=== PATIENT | male | born 1995 | race African-American/Black ===

== ENCOUNTER 2016-02-16 17:57 | Emergency (ER) | payer OTHER ==
[~2016-02-16] VITALS: Ht 172.7 cm; Wt 70.9 kg
[~2016-02-16 17:57] MED LIST: AMOXICILLIN 50500 MG PO; BACTROBAN15 GM TOP; LOTRISONE CREAM15 GM TP; NAPROSYN500 MG PO; NORCO 325 MG-51 TAB PO; PREDNISONE10 MG PO; ZITHROMAX500 M2 PO; ZOFRAN ODT4 MG PO
[2016-02-16] MEDS ORDERED: NORCO 325 MG-7.1 TAB PO (18:57)
[2016-02-16] MEDS ORDERED: CLEOCIN HCL300 MG PO (18:57)
[2016-02-16 20:06] VITALS: BP 121/52; PULSE 94; TEMP 101.7
== END 2016-02-16 20:08 | disposition home or self-care (01) ==
LOC: COL.ER 17:57
DX: J03.90 Acute tonsillitis, unspecified (principal)
CPT/HCPCS: J1100; J7030

== ENCOUNTER 2016-08-05 09:19 | Emergency (ER) | payer OTHER ==
[~2016-08-05] VITALS: Ht 172.7 cm; Wt 75.5 kg
[~2016-08-05 09:19] MED LIST changes: +CLEOCIN HCL300 MG PO; +NORCO 325 MG-7.1 TAB PO
[2016-08-05 09:24] VITALS: BP 120/68; PULSE 105; TEMP 98.2
[2016-08-05 12:22] LABS: CHLAMYDIA/TRACH by PCR Male DETECTED; Neisseria Gon by PCR Male NOT DETECTED
== END 2016-08-05 10:22 | disposition home or self-care (01) ==
LOC: COL.ER 09:19
PROVIDERS: Physician Assistant
DX: Z20.2 Contact with and (suspected) exposure to infections with a predominantly sexual mode of transmission (principal)
CPT/HCPCS: J0696

== ENCOUNTER 2016-08-23 20:36 | Emergency (ER) | payer OTHER ==
[~2016-08-23] VITALS: Ht 172.7 cm; Wt 70.9 kg
[2016-08-23 20:43] VITALS: BP 125/68; TEMP 98.4
[2016-08-23 21:49] VITALS: PULSE 72
[2016-08-23 23:18] LABS: CHLAMYDIA/TRACH by PCR Male NOT DETECTED; Neisseria Gon by PCR Male NOT DETECTED
== END 2016-08-23 21:51 | disposition home or self-care (01) ==
LOC: COL.ER 20:36
PROVIDERS: Nurse Practitioner
DX: Z11.2 Encounter for screening for other bacterial diseases (principal)